=== PATIENT | female | born 2000 | race Caucasian/White ===

== ENCOUNTER 2025-03-14 13:46 | Emergency (ER) | payer MEDICAID ==
[~2025-03-14] VITALS: Ht 160 cm; Wt 106.8 kg
[2025-03-14 13:50] VITALS: BP 146/81; PULSE 107; RESP 18; O2SAT 98
[2025-03-14] MEDS ORDERED: ACET-1025 PO (15:15)
[2025-03-14] MEDS ORDERED: CLIN300C71 PO (15:15)
[2025-03-14] MEDS ORDERED: IBUP-1986 PO (15:15)
--- NOTE | 2025-03-14 15:15 | Physician Documentation ---
HPI ~ General Chief Complaint: Tooth Problem Stated Complaint: FACIAL PAIN Time Seen by MD: 14:14 History of Present Illness HPI Comment Patient is seen today with complaints of left upper dental pain for three days. Patient states he has had problems with a tooth but has not yet seen a dentist. She denies any fevers or chills or nausea, vomiting, diarrhea or chest pain or shortness of breath or abdominal pain. She has no other concern or complaint at this time. Medication Reconciliation Allergies: Coded Allergies: Penicillins (Verified Allergy, Unknown, 03/14/25) Review of Systems Constitutional: Denies: chills, fever, weakness Eyes: Denies: pain, blurred vision ENT: Denies: ear pain, nose pain, throat pain, mouth pain Respiratory: Denies: cough, shortness of breath Cardiovascular: Denies: chest pain, palpitations Gastrointestinal: Denies: abdominal pain, nausea, vomiting Genitourinary: Denies: burning, dysuria Female Genitalia: Denies: vaginal discharge, pelvic pain Neurological: Denies: headache, dizziness Musculoskeletal: Denies: pain, swelling Integumentary: Denies: rash, lesions Allergic/Immunologic: Denies: hives, itching Hematologic/Lymphatic: Denies: no symptoms reported Psychiatric: Denies: depression, anxiety Physical Exam Vital Signs: Temperature: 97.3, Source: Temporal, Heart Rate: 107, Respiratory Rate: 18, BP: 146/81, Pulse Oximetry: 98, Weight: 106.850 Physical Exam General: Awake and Alert, no acute distress. HEENT: Exam I do not appreciate any periapical abscess. Conjunctiva pink, Sclera clear, Mucus Membranes moist. Neck: Supple without masses and tenderness. Resp: Unlabored. Lungs clear to auscultation bilaterally. Heart: Regular Rate and rhythm, normal S1 and S2 without murmur, rub or gallop. Extremities: No cyanosis,clubbing or edema. Skin: Warm and Dry. Progress Results/Orders Results/Orders Vital Signs 03/14/25 13:50 Temp 97.3 Pulse 107 Resp 18 B/P (MAP) 146/81 Pulse Ox 98 Medical Decision Making Findings Patient is seen today with complaints of left upper dental pain for three days. Patient states he has had problems with a tooth but has not yet seen a dentist. She denies any fevers or chills or nausea, vomiting, diarrhea or chest pain or shortness of breath or abdominal pain. She has no other concern or complaint at this time. Departure Disposition: 01 HOME / SELF CARE / HOMELESS Impression: Primary Impression: Dental abscess Condition: Improved Discharge Instructions: Dental Abscess Additional Instructions: Patient is seen today with complaints of left upper dental pain for three days. Patient states he has had problems with a tooth but has not yet seen a dentist. She denies any fevers or chills or nausea, vomiting, diarrhea or chest pain or shortness of breath or abdominal pain. She has no other concern or complaint at this time. Referrals: NO PRIMARY CARE PROVIDER (PCP) Prescriptions Clindamycin HCl (Clindamycin HCl) 300 Mg Capsule 1 CAP PO Q8H for 10 Days, #30 CAP Prov: LUISITO ROWAN 03/14/25 Acetaminophen (Tylenol Extra Strength) 500 Mg Tablet 2 TAB PO Q6H PRN PRN for pain or fever for 7 Days, #56 TAB Prov: LUISITO ROWAN 03/14/25 Ibuprofen (Ibuprofen) 800 Mg Tablet 1 TAB PO Q8H for pain for 10 Days, #30 TAB 0 Refills Prov: LUISITO ROWAN 03/14/25 Signature Scribe Signature: No scribe Attestation: No scribe LUISITO ROWAN Mar 14, 2025 15:15
[2025-03-14] MEDS: ibuprofen tablet 400 MG TABLET PO STA (15:19)
[2025-03-14 15:32] VITALS: TEMP 97.3
== END 2025-03-14 15:34 | disposition home or self-care (01) ==
LOC: ER 13:47
DX: K04.7 Periapical abscess without sinus (principal); Z88.0 Allergy status to penicillin
CPT/HCPCS: 99284